=== PATIENT | female | born 1985 | race Hispanic/Latino ===

== ENCOUNTER 2023-05-05 08:43 | Emergency (ER) | payer BC ==
[2023-05-05] VITALS (17 sets, daily range): BP systolic 118–150; BP diastolic 80–98
[~2023-05-05] VITALS: Ht 152.4 cm; Wt 65.9 kg
[~2023-05-05 08:43] MED LIST: AMOXICILLIN500 MG OR; PRENATA4 PO
[2023-05-05 09:47] LABS: BASO% 0.7 % (0-3); EOS% 1.3 % (0-8); HEMATOCRIT 47.2 % (37.0-47.0); HEMOGLOBIN 15.6 g/dl (12.0-16.0); IMMATURE GRANULOCYTES 0.1 % (0.0-5.0); LYMPH% 26.4 % (15-41); MEAN CELL VOLUME 85.8 fL CALC (80.0-100.0); MEAN CORPUSCULAR HGB 28.4 pG CALC (26.0-32.0); MEAN CORPUSCULAR HGB CONC 33.1 g/dL CAL (32.0-36.0); MONO% 7.4 % (2-13); NEUT# 5.33 thou/uL (2.00-7.15); NEUT% 64.1 % (42-76); RED BLOOD COUNT 5.5 mill/uL (4.20-5.60); RED CELL DISTRI WIDTH 13.3 % (11.5-15.5)
[2023-05-05 09:57] LABS: ALKALINE PHOSPHATASE 89 u/l (38-126); ANION GAP 13 (6-22 (CALC)); BILIRUBIN, TOTAL 0.7 mg/dL (0.02-1.3); BUN 12 mg/dL (7-17); BUN/CREATININE RATIO 16 (12-20 (CALC)); CARBON DIOXIDE 24 mmol/l (22-30); CHLORIDE 106 mmol/l (95-108); CREATININE 0.7 mg/dL (0.5-1.0); GFR FOR AFR.AMER. > 60 ML/MIN (>=60 (CALC)); GFR OTHER RACES > 60 ML/MIN (>=60 (CALC)); POTASSIUM 3.8 mmol/l (3.5-5.1); SGOT/AST 29 u/l (14-36); SODIUM 139 mmol/l (137-146); TOTAL PROTEIN 8.3 g/dL (6.3-8.2)
[2023-05-05 10:00] LABS: ALBUMIN 4.8 g/dL (3.2-5.0)
[2023-05-05 11:12] LABS: URINE BLOOD DIPSTICK Negative (NEGATIVE); URINE GLUCOSE - DIPSTICK Negative (NEGATIVE); URINE KETONE Trace mg/dL (NEGATIVE); URINE LEUK ESTERASE Negative (NEGATIVE); URINE NITRITE - DIPSTICK Negative (Negative); URINE PROTEIN - DIPSTICK 30 mg/dL (NEG-TRACE); URINE SPECIFIC GRAVITY >=1.030
[2023-05-05 11:16] LABS: URINE COLOR Yellow
[2023-05-05 11:17] LABS: URINE MUCUS RARE hpf (NONE-FEW); URINE SQUAMOUS EPITHELIAL CELL FEW EPI/hpf (0-FEW)
[2023-05-05] MEDS ORDERED: TORADOL PO (13:43)
[2023-05-05] MEDS ORDERED: FLEXERIL5 M1 PO (13:43)
== END 2023-05-05 13:57 | disposition home or self-care (01) | DRG 552 ==
LOC: ED 08:43
PROVIDERS: Emergency Medicine
DX: M62.830 Muscle spasm of back (principal)